=== PATIENT | female | born 1995 | race Caucasian/White ===

== ENCOUNTER 2017-11-16 23:35 | Emergency (ER) | payer OTHER ==
[~2017-11-16] VITALS: Ht 157.5 cm; Wt 54.0 kg
[2017-11-17] MEDS ORDERED: ZOFRAN ODT4 MG PO (03:47)
[2017-11-17] MEDS ORDERED: PEPCID40 MG PO (03:47)
== END 2017-11-17 | disposition home or self-care (01) ==
LOC: ER 23:35
DX: O21.0 Mild hyperemesis gravidarum (principal); Z34.01 Encounter for supervision of normal first pregnancy, first trimester